=== PATIENT | female | born 1975 | race Caucasian/White ===

== ENCOUNTER → 2017-05-06 | Outpatient (CLI) | payer BC ==
[~2017-05-06] MED LIST: CEPH500; IBUP400; Lexapro20 MG
[2017-05-06 10:29] LABS: Source, Urine Clean Catch
[2017-05-06 11:34] LABS: Bilirubin, Urine Neg (Neg); Blood, Urine 1+ (Neg); Glucose Qualitative, Urine Neg (Neg); Ketones, Urine Neg (Neg); Leukocyte Esterase, Urine 2+ (Neg); Nitrite, Urine Neg (Neg); Protein, Urine Neg (Neg); Specific Gravity, Urine 1.015 (1.003-1.022); Urobilinogen, Urine NORM (Normal)
[2017-05-06 11:45] LABS: Appearance, Urine Clear (Clear); Color, Urine Yellow (P-Yellow)
[2017-05-06 11:49] LABS: Bacteria Few /hpf; Red Blood Cells, Urine 0-2 /hpf (0-2); Squamous Epithelial Cells Rare /hpf (Few)
== END | disposition home or self-care (01) ==
LOC: OLS 10:27 → LAB SHORT 10:27 → LAB FUT 05-06 10:25
PROVIDERS: Legal Medicine
DX: R30.0 Dysuria (principal)
CPT/HCPCS: 81001; 87086

== ENCOUNTER → 2023-02-08 | Outpatient (CLI) | payer OTHER | END | disposition home or self-care (01) | LOC: LAB SHORT 08:02 → LAB 08:02 | DX: R30.0 Dysuria (principal); R35.0 Frequency of micturition; R31.9 Hematuria, unspecified | CPT/HCPCS: 87077; 87086; 87147; 87186 ==

== ENCOUNTER → 2023-03-18 | Outpatient (CLI) | payer OTHER ==
[2023-03-18 10:20] LABS: Source, Urine Clean Catch
[2023-03-18 12:48] LABS: Appearance, Urine Hazy (Clear); Bilirubin, Urine Neg (Neg); Blood, Urine 2+ (Neg); Color, Urine Yellow (P-Yellow); Glucose Qualitative, Urine Neg (Neg); Ketones, Urine Neg (Neg); Leukocyte Esterase, Urine 3+ (Neg); Nitrite, Urine Pos (Neg); Protein, Urine 1+ (Neg); Urobilinogen, Urine 1+ (Normal)
[2023-03-18 13:20] LABS: Bacteria Many /hpf; Squamous Epithelial Cells Few /hpf (Few); White Blood Cells, Urine 25-50 /hpf (0-5)
== END | disposition home or self-care (01) ==
LOC: LAB 08:35 → LAB SHORT 08:35
PROVIDERS: Legal Medicine
DX: N39.0 Urinary tract infection, site not specified (principal)
CPT/HCPCS: 81001; 87077; 87086; 87186